=== PATIENT | male | born 1955 | race Caucasian/White ===

== ENCOUNTER → 2019-02-14 | Day surgery (SDC) | payer OTHER ==
[2019-02-11 11:15] LABS: BASOPHILS # (AUTO) 0.1 (0.0-0.1); BASOPHILS % 1.3 % (0.0-1.0); EOSINOPHILS # (AUTO) 0.5 (0.0-0.4); EOSINOPHILS % 7.9 % (0.0-6.0); HEMATOCRIT 43.9 % (38.2-49.6); HEMOGLOBIN 14.6 g/dL (14.0-18.0); LYMPHOCYTES # (AUTO) 2.3 (1.0-3.2); LYMPHOCYTES % 37.1 % (18.0-39.1); MEAN CORPUSCULAR HEMOGLOBIN 29.4 pg (28-32); MEAN CORPUSCULAR HGB CONC 33.3 g/dL (31-35); MEAN CORPUSCULAR VOLUME 88.3 fL (81-99); MONOCYTES # (AUTO) 0.5 (0.2-0.8); MONOCYTES % 7.9 % (4.4-11.3); NEUTROPHILS # (AUTO) 2.9 (2.1-6.9); NEUTROPHILS % 45.6 % (38.7-80.0); PLATELET COUNT 240 x10e3/uL (140-360); RED BLOOD COUNT 4.97 x10e6/uL (4.3-5.7); RED CELL DISTRIBUTION WIDTH 13.4 % (11.7-14.4)
[2019-02-11 11:31] LABS: ALANINE AMINOTRANSFERASE 65 IU/L (0-55); ALBUMIN 4.1 g/dL (3.5-5.0); ALBUMIN/GLOBULIN RATIO 1.2 (0.8-2.0); ALKALINE PHOSPHATASE 74 IU/L (40-150); BLOOD UREA NITROGEN 15 mg/dL (7-26); BUN/CREATININE RATIO 17 (6-25); CALCIUM 10.5 mg/dL (8.4-10.2); CARBON DIOXIDE 24 mmol/L (22-29); CHLORIDE 103 mmol/L (98-107); CREATININE, SERUM 0.88 mg/dL (0.72-1.25); EST GLOMERULAR FILTRATION RATE > 60 ML/MIN (60-); GLUCOSE 95 mg/dL (74-118); SODIUM 136 mmol/L (136-145)
[2019-02-11 11:32] LABS: INR 0.96; PROTHROMBIN TIME 13.3 seconds (11.9-14.5)
[2019-02-11 11:33] LABS: PARTIAL THROMBOPLASTIN TIME 33.4 seconds (23.8-35.5)
[~2019-02-14] MED LIST: ADULT ASPIRIN81 MG PO; CEFAZOLIN SOD 1 GM/NS 50ML 50 ML IV ONE; CITALOPRAM HBR20 MG PO; DEXAMETHASONE SOD PHOS INJ 4 MG/ML VIAL ONE; FENTANYL CITRATE/PF 100MCG/2 ML INJ ONE; GLIPIZIDE ER5 MG PO; INSULIN N SQ; KETOROLAC TROMETHAMINE 30 MG/ML VIAL ONE; LEVOTHYROXINE200 MCG; LEVOTHYROXINE25 MCG PO; LIDOCAINE HCL 2% LOCAL INJ 5 ML SDV VIAL INJ ONE; LISINOPRIL-HCT1 EAC2 PO; LOVASTATIN20 MG PO; MIDAZOLAM HCL 2 MG/2 ML VIAL ONE; MULTI-VITAMIN1 EACH PO; ONDANSETRON HCL INJ 2MG/ML 2ML 2 MG/ML VIAL ONE; PIOGLITAZONE HC45 MG PO; PROPOFOL IV EMULSION 10 MG/ML 20 ML VIAL ONE; SEVOFLURANE INHAL SOLN 250 ML PEN BTL ONE; TESTOSTERONE SHOT; VIT D PO; Z LEVOTHROID PO; Z.0.ACTOS15 MG PO; Z.0.GLUCOPHAGE500 MG PO; Z.0.LOVAZA1 GM PO; Z.2.LISINOPRIL-HCT1 PO; ZETIA10 MG PO; [UNRECOGNIZED DRUG - OTHER] PO
--- OUTSIDE RECORDS SUMMARY | 2019-02-14 05:21 | XMS REPORT ---
Author Author [facility] Address Unknown Phone Unavailable Care Team Providers Care Architect Marine Name Role Phone ROVERTO GILBERT Unavailable Unavailable RICHMOND OCONNOR Unavailable Unavailable Radha HILTON Unavailable Unavailable Problems This patient has no known problems. Allergies, Adverse Reactions, Alerts This patient has no known allergies or adverse reactions. Medications This patient has no known medications. Results Test Description Test Time Test Comments Text Results Atomic Results Result Comments TISSUE EXAM 2018-04-23 13:50:00 Surgical Pathology Report Case: [id number] Authorizing Provider: Gilbert Garcia Collected: 04/17/2018 1533 Ord ering Location: [facility] Radiology Angio Received: 04/17/2018 1533 Pathologist: Ana Lilia Ridley MD Specimen: Biopsy, Liver LIVER, ULTRASOUND-GUIDED NEEDLE BIOPSIES- STEATOHEPATITIS- FIBROSIS STAGE 3 OF 4- SEE COMMENT Signing Pathologist Direct Phone Line: [phone] signed by Ana Lilia Ridley MD on 04/23/2018 at 1:50 PMThe non-alcoholic steatohepatitis (JARET) activity scoring is performed according to guidelines from non-alcoholic steatohepatitis, clinical research network (Tana, et al. Hepatology 2005. 41:1313-21), at the request of the clinician, for research related purposes.The JARET score is: Steatosis: Grade 3 + lobular inflammation, grade 1 + hepatocyte ballooning score 2=6/8. The fibrosis score is 3 of 4.36514, 40037 [id number] liver enzymes Right match-e-be-n[place]-she-wish band liver biopsyThe specimen is received in a formalin- filled container and labeled with the patient's information and labeled "right match-e-be-n[place]-she-w[place] band liver biopsy" and consists of two car core biopsies measuring 2.5 and 2.7 cm in length. Both cores are bisected, submitted entirely A1. CG/pl Section shows four variably sized cores of liver parenchyma with greater than 10 portal tracts and is adequate for evaluation. There is diffuse steatosis, mixed large droplet, medium droplet and small droplet typemacrovesicular type, involving about 70% of liver parenchyma. Multifocal ballooning degeneration with Karen Denk hyaline is noted. There is mild lobular inflammation with few scattered acidophilic bodies. Occasional glycogenated nuclei are seen. The portal tracts show preserved and unremarkable bile ducts. No significant portal inflammation is noted. There is cholangiolar proliferation with associated neutrophils. Iron stain is negative. No hyaline globules are seen on PAS with diastase stain. The trichrome stain shows portal/periportal and perisinusoidal fibrosis. Multiple foci of central to portal bridging fibrosis are seen.Special stains: trichrome, reticulin, iron and PAS with diastase U/S, BIOPSY, LIVER 2018-04-17 11:01:00 Reason for Exam:->ELEVATED LFTS, K76.0 FINAL REPORT Procedure: Ultrasound-Guided Core Random Hepatic Biopsy: Pre/post-procedure diagnosis: Elevated LFTs Physician: Helena Assistants: none Sedation: versed 2 mg, fentanyl 100 mcg IV. The patient vital signs and pulse oximetry were monitored by the attending physician and a registered nurse during and after the procedure and remained stable. Local Anesthesia: 5 cc 1% Xylocaine Approach: Right anterolateral intercostal Description/findings: The risks, benefits, and alternatives of the procedure were discussed with the patient. Questions were answered, and the patient agrees with the treatment plan. Informed, written consent was then obtained. After an appropriate site for biopsy was found, the skin of the right upper abdomen was prepped and draped, and local anesthesia given. A 16 G Bio-Pince core biopsy needle was inserted into the right lobe under ultrasound guidance. A total of 2 passes were made. Post procedure sonogram reveals no hematoma. No immediate complications were noted. The moderate sedation time was 19 minutes. Specimen: Total of 2 16 G core biopsy samples; samples were delivered to pathology in formalin solution. Estimated blood loss: none. Disposition: Six hour observation. Impression: Uncomplicated ultrasound-guided core random hepatic biopsy. Signed: Karthikeyan Alvarado Verified Date/Time: 04/17/2018 11:01:00 Reading Location: [address] Ultrasound Reading Room C METABOLIC PANEL 2018-04-17 06:57:00 SODIUM (BEAKER) (test apuj=068) 139 meq/L 136-145 POTASSIUM (BEAKER) (test cmee=909) 4.2 meq/L 3.5-5.1 CHLORIDE (BEAKER) (test tflw=864) 104 meq/L 98-107 CO2 (BEAKER) (test dvcq=318) 26 meq/L 22-29 BLOOD UREA NITROGEN (BEAKER) (test igqc=113) 13 mg/dL 7-21 CREATININE (BEAKER) (test joih=541) 0.88 mg/dL 0.57-1.25 GLUCOSE RANDOM (BEAKER) (test xrml=649) 213 mg/dL 70-105 CALCIUM (BEAKER) (test ohpn=841) 10.2 mg/dL 8.4-10.2 EGFR (BEAKER) (test pboh=7454) 88 mL/min/1.73 sq m ESTIMATED GFR IS NOT ACCURATE CREATININE CLEARANCE IN PREDICTING GLOMERULAR FILTRATION RATE. ESTIMATED GFR IS NOT APPLICABLE FOR DIALYSIS PATIENTS. PT/[id number] 06:50:00* Test Item Value Reference Range Comments PROTIME (BEAKER) (test wnan=885) 14.1 seconds 11.7-14.7 INR (BEAKER) (test slfy=524) 1.1 <=5.9 PARTIAL THROMBOPLASTIN TIME (BEAKER) (test optz=302) 29.7 seconds 22.5-36.0 RECOMMENDED COUMADIN/WARFARIN INR THERAPY RANGESSTANDARD DOSE: 2.0 - 3.0 Inclu haydee: PROPHYLAXIS for venous thrombosis, systemic embolization; TREATMENT for lisa ous thrombosis and/or pulmonary embolus.HIGH RISK: Target INR is 2.5-3.5 for pat ients with mechanical heart valves.CBC W/PLT COUNT & AUTO [id number] 06:42:00* Test Item Value Reference Range Comments WHITE BLOOD CELL COUNT (BEAKER) (test pvzk=894) 5.0 K/ L 3.5-10.5 RED BLOOD CELL COUNT (BEAKER) (test tvph=900) 4.28 M/ L 4.63-6.08 HEMOGLOBIN (BEAKER) (test vlap=475) 12.8 GM/DL 13.7-17.5 HEMATOCRIT (BEAKER) (test lbti=889) 39.3 % 40.1-51.0 MEAN CORPUSCULAR VOLUME (BEAKER) (test uycg=564) 91.8 fL 79.0-92.2 MEAN CORPUSCULAR HEMOGLOBIN (BEAKER) (test wtaq=842) 29.9 pg 25.7-32.2 MEAN CORPUSCULAR HEMOGLOBIN CONC (BEAKER) (test mekh=144) 32.6 GM/DL 32.3-36.5 RED CELL DISTRIBUTION WIDTH (BEAKER) (test vfph=237) 13.8 % 11.6-14.4 PLATELET COUNT (BEAKER) (test lhtd=778) 178 K/CU MM 150-450 MEAN PLATELET VOLUME (BEAKER) (test tzgt=447) 11.9 fL 9.4-12.4 NUCLEATED RED BLOOD CELLS (BEAKER) (test ttdu=183) 0 /100 WBC 0-0 NEUTROPHILS RELATIVE PERCENT (BEAKER) (test myro=819) 56 % LYMPHOCYTES RELATIVE PERCENT (BEAKER) (test prfq=474) 30 % MONOCYTES RELATIVE PERCENT (BEAKER) (test wdhz=287) 10 % EOSINOPHILS RELATIVE PERCENT (BEAKER) (test ondg=315) 3 % BASOPHILS RELATIVE PERCENT (BEAKER) (test abmm=038) 1 % NEUTROPHILS ABSOLUTE COUNT (BEAKER) (test asye=288) 2.80 K/ L 1.78-5.38 LYMPHOCYTES ABSOLUTE COUNT (BEAKER) (test hywd=204) 1.49 K/ L 1.32-3.57 MONOCYTES ABSOLUTE COUNT (BEAKER) (test fcoq=153) 0.49 K/ L 0.30-0.82 EOSINOPHILS ABSOLUTE COUNT (BEAKER) (test rppu=494) 0.16 K/ L 0.04-0.54 BASOPHILS ABSOLUTE COUNT (BEAKER) (test encs=489) 0.06 K/ L 0.01-0.08 IMMATURE GRANULOCYTES-RELATIVE PERCENT (BEAKER) (test uakk=5313) 0 % 0-1 POCT-GLUCOSE [id number] 12:27:00* Test Item Value Reference Range Comments POC-GLUCOSE METER (BEAKER) (test opuf=2163) 116 mg/dL 70-110 TESTED AT [facility] [address] [address] POCT-GLUCOSE [id number] 08:21:00* Test Item Value Reference Range Comments POC-GLUCOSE METER (BEAKER) (test rgwt=5563) 123 mg/dL 70-110 TESTED AT [address] [address] POCT-GLUCOSE [id number] 21:17:00* Test Item Value Reference Range Comments POC-GLUCOSE METER (BEAKER) (test zypk=5007) 69 mg/dL 70-110 TESTED AT [address] [address] POCT-GLUCOSE [id number] 17:10:00* Test Item Value Reference Range Comments POC-GLUCOSE METER (BEAKER) (test dawn=2140) 107 mg/dL 70-110 TESTED AT [address] [address] POCT-GLUCOSE [id number] 11:50:00* Test Item Value Reference Range Comments POC-GLUCOSE METER (BEAKER) (test xkue=1828) 121 mg/dL 70-110 TESTED AT [address] [address] POCT-GLUCOSE [id number] 09:58:00* Test Item Value Reference Range Comments POC-GLUCOSE METER (BEAKER) (test emsh=8926) 136 mg/dL 70-110 TESTED AT [address] [address] POCT-GLUCOSE [id number] 22:19:00* Test Item Value Reference Range Comments POC-GLUCOSE METER (BEAKER) (test hvuj=5364) 88 mg/dL 70-110 TESTED AT [address] [address] POCT-GLUCOSE [id number] 17:28:00* Test Item Value Reference Range Comments POC-GLUCOSE METER (BEAKER) (test njyu=9813) 149 mg/dL 70-110 TESTED AT [address] [address] POCT-GLUCOSE [id number] 11:47:00* Test Item Value Reference Range Comments POC-GLUCOSE METER (BEAKER) (test eyhs=3368) 107 mg/dL 70-110 TESTED AT [address] [address] POCT-GLUCOSE [id number] 07:31:00* Test Item Value Reference Range Comments POC-GLUCOSE METER (BEAKER) (test umzb=3396) 108 mg/dL 70-110 TESTED AT [address] [address] POCT-GLUCOSE [id number] 22:14:00* Test Item Value Reference Range Comments POC-GLUCOSE METER (BEAKER) (test fccn=1044) 85 mg/dL 70-110 TESTED AT [address] [address] POCT-GLUCOSE [id number] 16:45:00* Test Item Value Reference Range Comments POC-GLUCOSE METER (BEAKER) (test sfpv=6501) 122 mg/dL 70-110 TESTED AT [address] [address] POCT-GLUCOSE [id number] 07:49:00* Test Item Value Reference Range Comments POC-GLUCOSE METER (BEAKER) (test vwpt=1658) 130 mg/dL 70-110 TESTED AT [address] [address] POCT-GLUCOSE [id number] 21:17:00* Test Item Value Reference Range Comments POC-GLUCOSE METER (BEAKER) (test qckg=3184) 134 mg/dL 70-110 TESTED AT [address] [address] POCT-GLUCOSE [id number] 16:12:00* Test Item Value Reference Range Comments POC-GLUCOSE METER (BEAKER) (test ocam=7760) 129 mg/dL 70-110 TESTED AT [address] [address] POCT-GLUCOSE [id number] 11:32:00* Test Item Value Reference Range Comments POC-GLUCOSE METER (BEAKER) (test wkoo=9613) 115 mg/dL 70-110 TESTED AT [address] [address] POCT-GLUCOSE [id number] 08:00:00* Test Item Value Reference Range Comments POC-GLUCOSE METER (BEAKER) (test yedg=3416) 145 mg/dL 70-110 TESTED AT [address] [address] POCT-GLUCOSE [id number] 21:29:00* Test Item Value Reference Range Comments POC-GLUCOSE METER (BEAKER) (test dzox=2255) 102 mg/dL 70-110 TESTED AT [address] [address] POCT-GLUCOSE [id number] 16:35:00* Test Item Value Reference Range Comments POC-GLUCOSE METER (BEAKER) (test bnco=6456) 172 mg/dL 70-110 TESTED AT [place] [id number] POCT-GLUCOSE [id number] 13:18:00* Test Item Value Reference Range Comments POC-GLUCOSE METER (BEAKER) (test cvum=1599) 170 mg/dL 70-110 TESTED AT [place] [address] POCT-GLUCOSE [id number] 19:26:00* Test Item Value Reference Range Comments POC-GLUCOSE METER (BEAKER) (test xosn=3993) 127 mg/dL 70-110 TESTED AT [address] [address] BASIC METABOLIC [id number] 15:48:00* Test Item Value Reference Range Comments SODIUM (BEAKER) (test kplq=986) 139 meq/L 136-145 POTASSIUM (BEAKER) (test zhqb=065) 3.6 meq/L 3.5-5.1 CHLORIDE (BEAKER) (test srsj=775) 110 meq/L 98-107 CO2 (BEAKER) (test xtpq=415) 20 meq/L 22-29 BLOOD UREA NITROGEN (BEAKER) (test zkow=820) 19 mg/dL 7-21 CREATININE (BEAKER) (test cqls=981) 0.78 mg/dL 0.57-1.25 GLUCOSE RANDOM (BEAKER) (test ckoj=778) 134 mg/dL 70-105 CALCIUM (BEAKER) (test meaf=985) 7.8 mg/dL 8.4-10.2 EGFR (BEAKER) (test qcvi=6845) 102 mL/min/1.73 sq m ESTIMATED GFR IS NOT ACCURATE CREATININE CLEARANCE IN PREDICTING GLOMERULAR FILTRATION RATE. ESTIMATED GFR IS NOT APPLICABLE FOR DIALYSIS PATIENTS. POCT-GLUCOSE [id number] 15:23:00* Test Item Value Reference Range Comments POC-GLUCOSE METER (BEAKER) (test csyb=2655) 159 mg/dL 70-110 TESTED AT [address] [address] CBC W/PLT COUNT & AUTO [id number] 15:19:00* Test Item Value Reference Range Comments WHITE BLOOD CELL COUNT (BEAKER) (test skge=537) 9.3 K/ L 3.5-10.5 RED BLOOD CELL COUNT (BEAKER) (test mfgv=757) 4.51 M/ L 4.63-6.08 HEMOGLOBIN (BEAKER) (test dkfj=716) 13.5 GM/DL 13.7-17.5 HEMATOCRIT (BEAKER) (test eoiz=557) 40.8 % 40.1-51.0 MEAN CORPUSCULAR VOLUME (BEAKER) (test rzyr=500) 90.5 fL 79.0-92.2 MEAN CORPUSCULAR HEMOGLOBIN (BEAKER) (test hwvf=427) 29.9 pg 25.7-32.2 MEAN CORPUSCULAR HEMOGLOBIN CONC (BEAKER) (test ywrw=709) 33.1 GM/DL 32.3-36.5 RED CELL DISTRIBUTION WIDTH (BEAKER) (test klfq=261) 15.6 % 11.6-14.4 PLATELET COUNT (BEAKER) (test hcqu=307) 225 K/CU MM 150-450 MEAN PLATELET VOLUME (BEAKER) (test iajv=046) 11.0 fL 9.4-12.4 NUCLEATED RED BLOOD CELLS (BEAKER) (test tzen=775) 0 /100 WBC 0-0 NEUTROPHILS RELATIVE PERCENT (BEAKER) (test mdxq=265) 72 % LYMPHOCYTES RELATIVE PERCENT (BEAKER) (test qxqd=987) 17 % MONOCYTES RELATIVE PERCENT (BEAKER) (test woyb=849) 8 % EOSINOPHILS RELATIVE PERCENT (BEAKER) (test grmd=378) 2 % BASOPHILS RELATIVE PERCENT (BEAKER) (test hlwx=023) 1 % NEUTROPHILS ABSOLUTE COUNT (BEAKER) (test cqtg=671) 6.71 K/ L 1.78-5.38 LYMPHOCYTES ABSOLUTE COUNT (BEAKER) (test dlbz=593) 1.58 K/ L 1.32-3.57 MONOCYTES ABSOLUTE COUNT (BEAKER) (test ymtc=397) 0.75 K/ L 0.30-0.82 EOSINOPHILS ABSOLUTE COUNT (BEAKER) (test zvky=058) 0.16 K/ L 0.04-0.54 BASOPHILS ABSOLUTE COUNT (BEAKER) (test ybes=626) 0.06 K/ L 0.01-0.08 IMMATURE GRANULOCYTES-RELATIVE PERCENT (BEAKER) (test keos=3008) 0 % 0-1 LOWER LEG RIGHT [facility] [address] [address] Patient Name: AUTUNM OLSON MR #: [id number] : 1955 Age/Sex: 61/M Req #: [id number] Adm Physician: Ordered by: TAVON HILTON MD Report #: [id number] Location: ER Room/Bed: Procedure: [id number] DX/LOWER LEG RIGHT Exam Date : 02/27/17 Exam Time: 2038 REPORT STATUS: Margo d EXAM: AP and crosstable lateral right femur and tib-fib x-rays DATE: 2016 Time stamp on exam: 2038 hours INDICATION: Fall, ankle pain COMP ARISON: None A preliminary report was provided by Dr. Dumont February 27 at 2132 hours. FINDINGS: BONES: Nonvisualization of the right hip s econdary to body habitus Acute mildly displaced diagonal fracture through the distal fibula with extension above the plafond. Acute displaced medial malle olus fracture. JOINTS: Widening of the medial clear space consistent with ligamentous injury. SOFT TISSUES: Soft tissue spine of the ankle. I MPRESSION: Acute right ankle bimalleolar fracture. No femoral fracture. Signed by: Dr. Valerie Dumont M.D. on 03/15/2017 2:59 AM Dictat ed By: VALERIE DUMONT MD 8 Transcribed By: JE on 03/15/17258 COPY TO: TAVON HILTON MD FEMUR TWO VIEW MINIMUM RIGHT [place] [address] Patient Name: AUTUMN OLSON MR #: [id number] : 1955 Age/Sex: 61/M Req #: [id number] Adm Physician: Ordered by: TAVON HILTON MD Report #: [id number] Location: Room/Bed: Procedure: [id number] DX/FEMUR TWO VIEW MINIMUM RIG HT Exam Date: Exam Time: REPORT STATUS: Sign ed EXAM: AP and crosstable lateral right femur and tib-fib x-rays DATE: Jan Time stamp on exam: 9 hours INDICATION: Fall, ankle pain COM PARISON: None A preliminary report was provided by Dr. Dumont February 27 017 at 2132 hours. FINDINGS: BONES: Nonvisualization of the right hip secondary to body habitus Acute mildly displaced diagonal fracture through the distal fibula with extension above the plafond. Acute displaced medial mall eolus fracture. JOINTS: Widening of the medial clear space consistent wit h ligamentous injury. SOFT TISSUES: Soft tissue spine of the ankle. IMPRESSION: Acute right ankle bimalleolar fracture. No femoral fracture. Signed by: Dr. Valerie Dumont M.D. on 03/15/2017 2:59 AM Dicta nury By: VALERIE DUMONT MD 8 Transcribed By: JE on 03/15/17258 COPY TO: TAVON HILTON MD
--- OUTSIDE RECORDS SUMMARY | 2019-02-14 05:21 | XMS REPORT | Clinical Summary ---
Author Author [facility] Address Unknown Phone Unavailable Care Team Providers Care [employer] Name Role Phone Pcp, No PCP Unavailable Allergies No Known Allergies Medications End Date Status Medication Sig Dispensed Refills Start Date Active hydroCHLOROthiazide Take 25 mg by 0 (HYDRODIURIL) 25 MG mouth daily. tablet Active glipiZIDE (GLUCOTROL) 5 Take 10 mg by 0 MG tablet mouth daily Extended release. Active levothyroxine (SYNTHROID, Take 200 mcg 0 LEVOTHROID) 200 MCG by mouth tablet Every morning on an empty stomach. Active pioglitazone (ACTOS) 45 Take 45 mg by 0 MG tablet mouth daily. Active cholecalciferol, vitamin Take 10,000 0 D3, 2,000 unit Tab Units by mouth daily. Active multivitamin per tablet Take 1 tablet 0 by mouth daily. Active aspirin 81 MG EC tablet Take 81 mg by 0 mouth daily. Active lisinopril Take 20 mg by 0 (PRINIVIL,ZESTRIL) 20 MG mouth daily. tablet Active simvastatin (ZOCOR) 10 MG Take 10 mg by 0 tablet mouth nightly. Active testosterone cypionate Inject 200 mg 0 (DEPOTESTOTERONE intramuscular CYPIONATE) 200 mg/mL ly every 14 injection (fourteen) days Pt does it every 12 days . Active metFORMIN (GLUCOPHAGE-XR) Take 1,000 mg 0 500 MG 24 hr tablet by mouth 2 (two) times daily. Active citalopram (CELEXA) 20 MG Take 20 mg by 0 tabletIndications: mouth daily. Anxiety with Depression Active enoxaparin (LOVENOX) 60 Inject 0.6 10 Syringe 0 mg/0.6 mL Syrg mLs (60 mg 7 total) subcutaneousl y daily. Active HYDROcodone-acetaminophen Take 1-2 80 tablet 0 (NORCO 10-325) 10-325 mg tablets by 7 per tablet mouth every 4 (four) hours as needed for Pain. Max Daily Amount: 12 tablets Active dulaglutide (TRULICITY) Inject 1.5 mg 0 1.5 mg/0.5 mL PnIj subcutaneousl y every 7 days. Active Problems Problem Noted Date Trimalleolar fracture of ankle, closed, right, initial encounter 03/02/2017 Encounters Care Team Description Date Type Specialty Radha, Gilbert Elevated liver function tests; Fatty liver 04/17/2018 Hospital Encounter Radha, Gilbert Elevated liver function tests (Primary Dx); Fatty liver 04/11/2018 Outside Orders Central Scheduling after 02/13/2018 Family History Medical History Relation Name Comments Heart disease Father Hyperlipidemia Father Vision loss Father Cancer Maternal Uncle Arthritis Mother Hyperlipidemia Mother Depression Sister Hyperlipidemia Sister Relation Name Status Comments Father Maternal Uncle Mother Sister Social History Date Tobacco Use Types Packs/Day Years Used Quit: 2011 Former Smoker Smokeless Tobacco: Never Used Comments: quit 15 years ago Sex Assigned at Date Recorded Not on file Industry Job Start Date Occupation Not on file Not on file Not on file Travel End Travel History Travel Start No recent travel history available. Last Filed Vital Signs Time Taken Vital Sign Reading 04/17/2018 3:00 PM CDT Blood Pressure 131/79 04/17/2018 3:00 PM CDT Pulse 91 04/17/2018 9:20 AM CDT Temperature 36.4 C (97.5 F) 04/17/2018 3:00 PM CDT Respiratory Rate 18 04/17/2018 9:45 AM CDT Oxygen Saturation 93% - Inhaled Oxygen - Concentration 04/17/2018 5:51 AM CDT Weight 170.4 kg (375 lb 11.2 oz) 04/17/2018 5:51 AM CDT Height 180.3 cm (5' 11") 04/17/2018 5:51 AM CDT Body Mass Index 52.4 Plan of Treatment Not on file Implants Device Identifier Shelf Expiration Date Model / Serial / Lot Implanted Type Area Manufactur er [id number] / / Scr Lp Jj Ln Thrd 4x40mm Fracture/F Right: Ankle ARTHREX [id number] - [id number] ixation Implanted: Qty: 2 on 03/03/2017 by Reba Bryan MD [id number] / / [id number] Plt Lock Dis Fib Right Ss 6h Fracture/F Right: Ankle ARTHREX [id number] - [id number] ixation Implanted: Qty: 1 on 03/03/2017 by Reba Bryan MD [id number] / / Scr Non Najma Clinton Lp 3.5x22mm Fracture/F Right: Ankle ARTHREX [id number] - [id number] ixation Implanted: Qty: 1 on 03/03/2017 by Reba Bryan MD [id number] / / Scr Non Najma Clinton Lp 3.5x16mm Fracture/F Right: Ankle ARTHREX [id number] - [id number] ixation Implanted: Qty: 11 on 03/03/2017 by Reba Bryan MD [id number] / / Scr Najma Low Profile 16mm Ss - Fracture/F Right: Ankle ARTHREX [id number] ixation Implanted: Qty: 1 on 03/03/2017 by Reba Bryan MD [id number] / / Scr Najma Low Profile 18mm Ss - Fracture/F Right: Ankle ARTHREX [id number] ixation Implanted: Qty: 11 on 03/03/2017 by Reba Bryan MD Procedures Comments Procedure Name Priority Date/Time Associated Diagnosis TISSUE EXAM AP Routine 04/17/2018 3:33 PM CDT US LIVER BIOPSY Routine 04/17/2018 Elevated liver function 9:25 AM CDT tests Fatty liver CBC W/PLT COUNT & AUTO STAT 04/17/2018 DIFFERENTIAL 6:31 AM CDT PT/APTT STAT 04/17/2018 6:31 AM CDT BASIC METABOLIC PANEL (7) STAT 04/17/2018 6:31 AM CDT CBC W/PLT COUNT & AUTO STAT 04/17/2018 DIFFERENTIAL 6:31 AM CDT after 02/13/2018 Results * Tissue Exam (04/17/2018 3:33 PM CDT) Case Report Surgical Pathology [facility] Report [facility] Case: [id number] Authorizing Provider:Gilbert Garcia Collected: 04/17/2018 1533 Ordering Location: [facility] Radiology AngioReceived: 04/17/2018 1533 Pathologist: Ana Lilia Ridley MD Specimen:Biopsy, Liver DIAGNOSIS LIVER, ULTRASOUND-GUIDED [facility] NEEDLE BIOPSIES [facility] - STEATOHEPATITIS - FIBROSIS STAGE 3 OF 4 - SEE COMMENT Signing Pathologist Direct Phone Line: [phone] COMMENT The non-alcoholic [facility] steatohepatitis (JARET) activity [facility] scoring is performed according to guidelines from non-alcoholic steatohepatitis, clinical research network (Tana, et al. Hepatology 2005. 41:1313-21), at the request of the clinician, for research related purposes. The JARET score is: Steatosis: Grade 3 + lobular inflammation, grade 1 + hepatocyte ballooning score 2=6/8. The fibrosis score is 3 of 4. CPT Code(s) 88538, 90136 X4 [facility] CLINICAL HISTORY Elevated liver enzymes [facility] SPECIMEN SOURCE Right [place] liver biopsy [facility] GROSS DESCRIPTION The specimen is received in a [facility] formalin-filled container and [facility] labeled with the patient's information and labeled "right [place] liver biopsy" and consists of two car core biopsies measuring 2.5 and 2.7 cm in length. Both cores are bisected, submitted entirely A1. CG/pl MICROSCOPIC DESCRIPTION Section shows four variably [facility] sized cores of liver [facility] parenchyma with greater than 10 portal tracts [...] of central to portal bridging fibrosis are seen. Special stains: trichrome, reticulin, iron and PAS with diastase Specimen Tissue - Biopsy, Liver Performing Organization Address City/State/Zipcode Phone Number [facility] [address] [place] [address] [facility] * Liver Biopsy (04/17/2018 9:25 AM CDT) Specimen Narrative Performed At FINAL REPORT [facility] Procedure: Ultrasound-Guided Core Random Hepatic Biopsy: Pre/post-procedure [...] core random hepatic biopsy. Signed: Karthikeyan Alvarado MD Report Verified Date/Time:04/17/2018 11:01:00 Reading Location: [facility] [id number] Ultrasound Reading Room Procedure Note Interface, External Ris In - 04/17/2018 11:03 AM CDT FINAL REPORT Procedure: Ultrasound-Guided Core Random Hepatic [...] core random hepatic biopsy. Signed: Karthikeyan Alvarado MD Report Verified Date/Time: 04/17/2018 11:01:00 Reading Location: [address] Ultrasound Reading Room Performing Organization Address City/State/Zipcode Phone Number [facility] * PT/aPTT (04/17/2018 6:31 AM CDT) Protime 14.1 11.7 - 14.7 seconds [facility] INR 1.1 <=5.9 [facility] PTT 29.7 22.5 - 36.0 seconds [facility] Specimen Blood Narrative Performed At RECOMMENDED COUMADIN/WARFARIN INR THERAPY RANGES [facility] STANDARD DOSE: 2.0 - 3.0 Includes: PROPHYLAXIS for venous thrombosis, [facility] systemic embolization; TREATMENT for venous thrombosis and/or pulmonary embolus. HIGH RISK: Target INR is 2.5-3.5 for patients with mechanical heart valves. Performing Organization Address City/State/Zipcode Phone Number [facility] [address] [place] [address] [facility] * CBC with platelet count + automated diff (04/17/2018 6:31 AM CDT) WBC 5.0 3.5 - 10.5 K/L [facility] RBC 4.28 (L) 4.63 - 6.08 M/L [facility] Hemoglobin 12.8 (L) 13.7 - 17.5 GM/DL [facility] Hematocrit 39.3 (L) 40.1 - 51.0 % [facility] MCV 91.8 79.0 - 92.2 fL [facility] MCH 29.9 25.7 - 32.2 pg [facility] MCHC 32.6 32.3 - 36.5 GM/DL [facility] RDW 13.8 11.6 - 14.4 % [facility] Platelets 178 150 - 450 K/CU MM [facility] MPV 11.9 9.4 - 12.4 fL [facility] nRBC 0 0 - 0 /100 WBC [facility] % Neutros 56 % [facility] % Lymphs 30 % [facility] % Monos 10 % [facility] % Eos 3 % [facility] % Baso 1 % [facility] # Neutros 2.80 1.78 - 5.38 K/L [facility] # Lymphs 1.49 1.32 - 3.57 K/L [facility] # Monos 0.49 0.30 - 0.82 K/L [facility] # Eos 0.16 0.04 - 0.54 K/L [facility] # Baso 0.06 0.01 - 0.08 K/L [facility] Immature 0 0 - 1 % [facility] Granulocytes-[facility] Specimen Blood Performing Organization Address City/State/Zipcode Phone Number [facility] [address] [place] [address] [facility] * Basic Metabolic Panel (04/17/2018 6:31 AM CDT) Sodium 139 136 - 145 meq/L [facility] Potassium 4.2 3.5 - 5.1 meq/L [facility] Chloride 104 98 - 107 meq/L [facility] CO2 26 22 - 29 meq/L [facility] BUN 13 7 - 21 mg/dL [facility] Creatinine 0.88 0.57 - 1.25 mg/dL [facility] Glucose 213 (H) 70 - 105 mg/dL [facility] Calcium 10.2 8.4 - 10.2 mg/dL [facility] EGFR 88Comment: ESTIMATED GFR IS mL/min/1.73 sq m [facility] NOT ACCURATE CREATININE [facility] CLEARANCE IN PREDICTING GLOMERULAR FILTRATION RATE. ESTIMATED GFR IS NOT APPLICABLE FOR DIALYSIS PATIENTS. Specimen Blood Performing Organization Address City/State/Zipcode Phone Number [facility] [address] [place], [place] [id number] [facility] after 02/13/2018 Insurance Payer Benefit Subscriber ID Type Phone Address Plan / Group [facility] HMO/POS CARE POS SELECT CHOICE Advance Directives For more information, please contact: Jac[place]eline [place] [phone] [place], [place] [id number] Date Inactivated Comments Code Status Date Activated 04/17/2018 5:47 PM Full Code 04/17/2018 9:42 AM This code status was determined by: Patient 03/08/2017 2:56 PM Full Code 03/02/2017 2:22 PM This code status was determined by: Patient
[2019-02-14 08:15] VITALS: BP 111/63
--- NOTE | 2019-02-15 14:23 | Operative Report ---
DATE OF PROCEDURE: 02/14/2019 SURGEON: Fransisco Bertrand MD PREOPERATIVE DIAGNOSIS: Stenosing tenosynovitis of right thumb trigger finger. POSTOPERATIVE DIAGNOSIS: Stenosing tenosynovitis of right thumb trigger finger. OPERATION PERFORMED: Tenovaginotomy of right thumb trigger finger. ANESTHESIA: General. HISTORY: The patient is a 63-year-old male, who presents with stenosing tenosynovitis of the right thumb finger that is recalcitrant to conservative treatment. The risks, benefits, and alternatives of treatment were discussed with the patient and they are prepared to undergo the procedure as outlined. DESCRIPTION OF PROCEDURE: The patient was brought to the operating theater. After the induction of adequate general/regional anesthesia, the patient was prepped and draped in a supine position. A time out was performed by the entire operating room team. An oblique incision was marked out over the A1 isabel of the right thumb finger. The upper extremity was exsanguinated, and a tourniquet was inflated to a pressure of 250 mmHg. The incision was made through the skin and subcutaneous tissues. All venous tributaries were controlled with bipolar cautery. The incision was deepened through the palmar tissues. The neurovascular bundles on the radial and ulnar sides of the flexor tendon sheath were identified and retracted away from the flexor tendon sheath and preserved. The A1 isabel of the affected finger was identified and incised longitudinally, taking care to protect and preserve the flexor tendons within the sheath. After the complete length of the isabel had been transected, the tendons were placed in a range of motion. There was noted to be good motion without any locking. The wound was then copiously irrigated with bacteriostatic saline and closed with 5-0 nylon in an interrupted horizontal mattress fashion. A Marcaine field block was performed at the operative site. The tourniquet was deflated. All the fingers pinked up nicely. A sterile bulky conforming bandage was applied to the hand, and the patient was returned to the recovery room in satisfactory condition and was discharged with a postoperative instruction sheet as well as a followup appointment. Fransisco Bertrand MD ER/MODL /[id number]
== END | disposition home or self-care (01) ==
LOC: OR 05:00
PROVIDERS: ATTEND Plastic Surgery
DX: M65.311 Trigger thumb, right thumb (principal); I10 Essential (primary) hypertension; E11.9 Type 2 diabetes mellitus without complications; E03.9 Hypothyroidism, unspecified; R06.83 Snoring; Z88.8 Allergy status to other drugs, medicaments and biological substances; Z01.810 Encounter for preprocedural cardiovascular examination; Z01.812 Encounter for preprocedural laboratory examination; Z79.4 Long term (current) use of insulin; Z79.82 Long term (current) use of aspirin
CPT/HCPCS: 26055; 36415 ×2; 80053; 82948; 85025; 85610; 85730; 93005; J0690; J1100; J1885; J2001; J2250; J2405; J2704; J3010

== ENCOUNTER 2021-01-04 08:53 | Inpatient (IN) | payer BC, OTHER ==
[~2021-01-04] VITALS: Ht 180.3 cm; Wt 148.3 kg
[~2021-01-04 08:53] MED LIST changes: -CEFAZOLIN SOD 1 GM/NS 50ML 50 ML IV ONE; -DEXAMETHASONE SOD PHOS INJ 4 MG/ML VIAL ONE; -FENTANYL CITRATE/PF 100MCG/2 ML INJ ONE; -KETOROLAC TROMETHAMINE 30 MG/ML VIAL ONE; -LIDOCAINE HCL 2% LOCAL INJ 5 ML SDV VIAL INJ ONE; -MIDAZOLAM HCL 2 MG/2 ML VIAL ONE; -ONDANSETRON HCL INJ 2MG/ML 2ML 2 MG/ML VIAL ONE; -PROPOFOL IV EMULSION 10 MG/ML 20 ML VIAL ONE; -SEVOFLURANE INHAL SOLN 250 ML PEN BTL ONE
[2021-01-04 09:43] LABS: BASOPHILS # (AUTO) 0.1 (0.0-0.1); BASOPHILS % 0.7 % (0.0-1.0); EOSINOPHILS # (AUTO) 0.1 (0.0-0.4); EOSINOPHILS % 0.9 % (0.0-6.0); HEMOGLOBIN 14.5 g/dL (14.0-18.0); LYMPHOCYTES # (AUTO) 2.1 (1.0-3.2); LYMPHOCYTES % 17.2 % (18.0-39.1); MEAN CORPUSCULAR HEMOGLOBIN 29.2 pg (28-32); MEAN CORPUSCULAR VOLUME 88.7 fL (81-99); MONOCYTES # (AUTO) 1.1 (0.2-0.8); MONOCYTES % 9.1 % (4.4-11.3); NEUTROPHILS # (AUTO) 8.6 (2.1-6.9); NEUTROPHILS % 70.1 % (38.7-80.0); PLATELET COUNT 304 x10e3/uL (140-360); RED BLOOD COUNT 4.96 x10e6/uL (4.3-5.7); RED CELL DISTRIBUTION WIDTH 13.5 % (11.7-14.4)
[2021-01-04] MEDS: Vancomycin IV 1 GM in SODIUM CHLORIDE 0.9% 250ML 250 ML IV SCH ×2 (10:00→17:00)
[2021-01-04 10:08] LABS: INR 0.98; PROTHROMBIN TIME 13.6 seconds (11.9-14.5)
[2021-01-04 10:22] LABS: ALBUMIN 3.5 g/dL (3.5-5.0); ALBUMIN/GLOBULIN RATIO 0.8 (0.8-2.0); ANION GAP 20.4 mmol/L (8-16); CALCIUM 10.1 mg/dL (8.4-10.2); CREATININE, SERUM 1.29 mg/dL (0.72-1.25); POTASSIUM 4.4 mmol/L (3.5-5.1)
[2021-01-04] MEDS: MORPHINE SULFATE INJ 4 MG/ML INJ 1ML IV PRN ×2 (10:23→14:37)
[2021-01-04] MEDS: CEFEPIME 1 GM in SODIUM CHLORIDE 0.9% 50ML 50 ML IV SCH (10:23)
[2021-01-04] MEDS ORDERED: ONDANSETRON HCL INJ 2MG/ML 2ML 2 MG/ML VIAL IV PRN (10:45)
[2021-01-04 12:05] VITALS: BP 128/69
[2021-01-04 13:21] VITALS: BP 128/69
[2021-01-04] MEDS ORDERED: LEVOTHYROXINE200 MC2 PO (13:49)
[2021-01-04] MEDS ORDERED: LEVOFLOXAC250 MG/10 PO (13:52)
[2021-01-04] MEDS ORDERED: ACETAMINOPHEN 325 MG TAB PO PRN (19:00)
[2021-01-04] MEDS ORDERED: MORPHINE SULFATE INJ 2 MG/ML SYR IV PRN (19:00)
[2021-01-04] MEDS: HYDROCODONE/APAP 5MG-325MG TAB PO PRN (19:42)
[2021-01-04 20:00] VITALS: BP 125/58
[2021-01-04 20:41] VITALS: BP_SYST 106; BP_SYST 125; BP_DIAS 57; BP_DIAS 58
[2021-01-04] MEDS: SODIUM CHLORIDE 0.9% 1000ML 1,000 ML IV SCH (21:18)
[2021-01-04] MEDS ORDERED: DEXTROSE 50% SYRINGE 50 ML IV PRN (22:15)
[2021-01-04] MEDS ORDERED: HUMULIN N100 UNITS/ SC ×2 (22:30)
[2021-01-04] MEDS ORDERED: INSULIN REGULAR, HUMAN 100 UNIT/1 ML SQ ONE (22:45)
[2021-01-04] MEDS ORDERED: NPH, HUMAN INSULIN ISOPHANE 100 UNIT/1 ML 3ML VIAL SQ SCH (22:45)
[2021-01-05] MEDS: HYDROCODONE/APAP 5MG-325MG TAB PO PRN ×3 (01:34→21:28)
[2021-01-05 01:38] VITALS: BP 121/45
[2021-01-05 04:53] LABS: BASOPHILS # (AUTO) 0.1 (0.0-0.1); BASOPHILS % 0.6 % (0.0-1.0); EOSINOPHILS # (AUTO) 0.1 (0.0-0.4); HEMATOCRIT 39.4 % (38.2-49.6); HEMOGLOBIN 12.8 g/dL (14.0-18.0); LYMPHOCYTES % 17.3 % (18.0-39.1); MEAN CORPUSCULAR HEMOGLOBIN 29.3 pg (28-32); MEAN CORPUSCULAR HGB CONC 32.5 g/dL (31-35); MEAN CORPUSCULAR VOLUME 90.2 fL (81-99); MONOCYTES # (AUTO) 1.1 (0.2-0.8); MONOCYTES % 9.7 % (4.4-11.3); NEUTROPHILS % 69.7 % (38.7-80.0); PLATELET COUNT 319 x10e3/uL (140-360); RED BLOOD COUNT 4.37 x10e6/uL (4.3-5.7); RED CELL DISTRIBUTION WIDTH 13.4 % (11.7-14.4)
[2021-01-05 05:12] LABS: ANION GAP 16.4 mmol/L (8-16); CALCIUM 9.7 mg/dL (8.4-10.2); CREATININE, SERUM 1.3 mg/dL (0.72-1.25); POTASSIUM 4.4 mmol/L (3.5-5.1)
[2021-01-05] MEDS: SODIUM CHLORIDE 0.9% 1000ML 1,000 ML IV SCH ×2 (05:46→11:13)
[2021-01-05] MEDS: LEVOTHYROXINE SODIUM 50 MCG TAB PO SCH (05:46)
[2021-01-05 06:03] VITALS: BP 123/57
[2021-01-05] MEDS ORDERED: NPH, HUMAN INSULIN ISOPHANE 100 UNIT/1 ML 3ML VIAL SQ SCH (07:30)
[2021-01-05] MEDS ORDERED: GLIPIZIDE 5 MG TAB ER PO SCH (08:00)
[2021-01-05] MEDS: INSULIN REGULAR, HUMAN 100 UNIT/1 ML SQ SCH ×2 (08:30→12:30)
[2021-01-05] MEDS: ASPIRIN 81 MG CHEW TAB PO SCH (08:32)
[2021-01-05] MEDS: CITALOPRAM HYDROBROMIDE 20 MG TAB PO SCH (08:32)
[2021-01-05 08:43] VITALS: BP 137/55
[2021-01-05] MEDS: CEFEPIME 1 GM in SODIUM CHLORIDE 0.9% 50ML 50 ML IV SCH ×2 (08:46→21:28)
[2021-01-05 09:01] VITALS: BP 137/55
[2021-01-05] MEDS: Vancomycin IV 1 GM in SODIUM CHLORIDE 0.9% 250ML 250 ML IV SCH ×2 (10:19→16:51)
[2021-01-05 12:00] VITALS: BP 127/64
[2021-01-05 14:16] LABS: FREE T4 (FREE THYROXINE) 1.01 ng/dL (0.8-1.8); THYROID STIMULATING HORMONE 8.667 uIU/mL (0.350-4.940)
[2021-01-05] MEDS: INSULIN LISPRO 100 UNIT/1 ML 3ML VIAL SQ SCH ×3 (16:30→21:36)
[2021-01-05] MEDS: ENOXAPARIN SOD INJ 40 MG/0.4 ML SYR SC SCH (16:58)
[2021-01-05] MEDS: MORPHINE SULFATE INJ 4 MG/ML INJ 1ML IV PRN (19:15)
[2021-01-05 20:00] VITALS: BP 112/46
[2021-01-05] MEDS: INSULIN GLARGINE 100 UNITS/ML VIAL SQ SCH (21:36)
[2021-01-06] VITALS (8 sets, daily range): BP systolic 109–134; BP diastolic 52–78
[2021-01-06 01:48] LABS: BASOPHILS # (AUTO) 0.1 (0.0-0.1); BASOPHILS % 0.7 % (0.0-1.0); EOSINOPHILS # (AUTO) 0.1 (0.0-0.4); EOSINOPHILS % 1.1 % (0.0-6.0); HEMATOCRIT 39.4 % (38.2-49.6); HEMOGLOBIN 12.7 g/dL (14.0-18.0); LYMPHOCYTES # (AUTO) 2.2 (1.0-3.2); LYMPHOCYTES % 17.6 % (18.0-39.1); MEAN CORPUSCULAR HEMOGLOBIN 29.1 pg (28-32); MEAN CORPUSCULAR HGB CONC 32.2 g/dL (31-35); MEAN CORPUSCULAR VOLUME 90.4 fL (81-99); MONOCYTES % 7.9 % (4.4-11.3); NEUTROPHILS # (AUTO) 8.8 (2.1-6.9); NEUTROPHILS % 71.3 % (38.7-80.0); PLATELET COUNT 324 x10e3/uL (140-360); RED BLOOD COUNT 4.36 x10e6/uL (4.3-5.7); RED CELL DISTRIBUTION WIDTH 13.4 % (11.7-14.4)
[2021-01-06 02:04] LABS: ANION GAP 16.3 mmol/L (8-16); CALCIUM 9.2 mg/dL (8.4-10.2); CREATININE, SERUM 1.05 mg/dL (0.72-1.25); POTASSIUM 4.3 mmol/L (3.5-5.1)
[2021-01-06] MEDS: SODIUM CHLORIDE 0.9% 1000ML 1,000 ML IV SCH (02:13)
[2021-01-06] MEDS: HYDROCODONE/APAP 5MG-325MG TAB PO PRN ×3 (03:45→23:19)
[2021-01-06] MEDS: LEVOTHYROXINE SODIUM 50 MCG TAB PO SCH (05:57)
[2021-01-06 06:22] LABS: CHOL/HDL RATIO 5.1 (3.9-4.7)
[2021-01-06] MEDS: INSULIN GLARGINE 100 UNITS/ML VIAL SQ SCH ×2 (08:00→21:00)
[2021-01-06] MEDS: INSULIN LISPRO 100 UNIT/1 ML 3ML VIAL SQ SCH ×7 (08:00→21:00)
[2021-01-06] MEDS: CEFEPIME 1 GM in SODIUM CHLORIDE 0.9% 50ML 50 ML IV SCH ×2 (09:12→21:07)
[2021-01-06] MEDS: MORPHINE SULFATE INJ 4 MG/ML INJ 1ML IV PRN ×2 (09:12→21:08)
[2021-01-06] MEDS: CITALOPRAM HYDROBROMIDE 20 MG TAB PO SCH (09:13)
[2021-01-06] MEDS: ASPIRIN 81 MG CHEW TAB PO SCH (09:13)
[2021-01-06] MEDS: Vancomycin IV 1 GM in SODIUM CHLORIDE 0.9% 250ML 250 ML IV SCH (10:51)
[2021-01-06] MEDS ORDERED: SODIUM CHLORIDE 0.9% 50ML 50 ML ONE (11:27)
[2021-01-06] MEDS ORDERED: IOPAMIDOL 370 MG/ML 200 ML INFUS..BTL INJ ONE (11:28)
[2021-01-06] MEDS: ENOXAPARIN SOD INJ 40 MG/0.4 ML SYR SC SCH (16:40)
[2021-01-06] MEDS: Vancomycin IV 1.5 GM in SODIUM CHLORIDE 0.9% 250ML 300 ML IV SCH (22:00)
[2021-01-07] VITALS (8 sets, daily range): BP systolic 117–127; BP diastolic 52–61
[2021-01-07] MEDS: LEVOTHYROXINE SODIUM 100 MCG TAB PO SCH (05:49)
[2021-01-07] MEDS: LEVOTHYROXINE SODIUM 75 MCG TAB PO SCH (05:49)
[2021-01-07] MEDS: SODIUM CHLORIDE 0.9% 1000ML 1,000 ML IV SCH ×2 (05:49→16:52)
[2021-01-07] MEDS ORDERED: LEVOTHYROXINE SODIUM 50 MCG TAB PO SCH (06:00)
[2021-01-07] MEDS: HYDROCODONE/APAP 5MG-325MG TAB PO PRN ×3 (08:20→22:00)
[2021-01-07] MEDS: CEFEPIME 1 GM in SODIUM CHLORIDE 0.9% 50ML 50 ML IV SCH ×2 (08:24→21:00)
[2021-01-07] MEDS: ASPIRIN 81 MG CHEW TAB PO SCH (08:24)
[2021-01-07] MEDS: CITALOPRAM HYDROBROMIDE 20 MG TAB PO SCH (08:25)
[2021-01-07] MEDS: INSULIN LISPRO 100 UNIT/1 ML 3ML VIAL SQ SCH ×7 (08:25→21:00)
[2021-01-07] MEDS: INSULIN GLARGINE 100 UNITS/ML VIAL SQ SCH ×2 (08:26→21:00)
[2021-01-07] MEDS: Vancomycin IV 1.5 GM in SODIUM CHLORIDE 0.9% 250ML 300 ML IV SCH ×2 (10:00→21:00)
[2021-01-07] MEDS ORDERED: CITRATE OF MAGNESIA 300ML BOTTLE PO PRN ×2 (10:30)
[2021-01-07] MEDS ORDERED: MAGNESIUM HYDROXIDE 30 ML UDC PO PRN ×2 (10:30)
[2021-01-07] MEDS ORDERED: DOCUSATE SODIUM 100 MG CAP PO ONE (11:00)
[2021-01-07] MEDS ORDERED: MAGNESIUM HYDROXIDE 30 ML UDC PO ONE (11:00)
[2021-01-07] MEDS: MORPHINE SULFATE INJ 4 MG/ML INJ 1ML IV PRN ×2 (13:45→20:40)
[2021-01-07] MEDS: DOCUSATE SODIUM 100 MG CAP PO SCH (16:29)
[2021-01-07] MEDS: ENOXAPARIN SOD INJ 40 MG/0.4 ML SYR SC SCH (16:30)
[2021-01-08] VITALS (8 sets, daily range): BP systolic 104–155; BP diastolic 49–90
[2021-01-08 05:41] LABS: BASOPHILS # (AUTO) 0.1 (0.0-0.1); BASOPHILS % 0.5 % (0.0-1.0); EOSINOPHILS # (AUTO) 0.2 (0.0-0.4); EOSINOPHILS % 1.9 % (0.0-6.0); HEMATOCRIT 37.2 % (38.2-49.6); HEMOGLOBIN 12.1 g/dL (14.0-18.0); LYMPHOCYTES # (AUTO) 1.9 (1.0-3.2); LYMPHOCYTES % 16.4 % (18.0-39.1); MEAN CORPUSCULAR HEMOGLOBIN 29.2 pg (28-32); MEAN CORPUSCULAR HGB CONC 32.5 g/dL (31-35); MEAN CORPUSCULAR VOLUME 89.9 fL (81-99); MONOCYTES # (AUTO) 0.9 (0.2-0.8); MONOCYTES % 7.7 % (4.4-11.3); NEUTROPHILS # (AUTO) 8.2 (2.1-6.9); NEUTROPHILS % 72.6 % (38.7-80.0); PLATELET COUNT 333 x10e3/uL (140-360); RED BLOOD COUNT 4.14 x10e6/uL (4.3-5.7); RED CELL DISTRIBUTION WIDTH 13.3 % (11.7-14.4)
[2021-01-08] MEDS: LEVOTHYROXINE SODIUM 75 MCG TAB PO SCH (06:00)
[2021-01-08] MEDS: LEVOTHYROXINE SODIUM 100 MCG TAB PO SCH (06:00)
[2021-01-08 06:07] LABS: ALBUMIN 2.5 g/dL (3.5-5.0); ALBUMIN/GLOBULIN RATIO 0.5 (0.8-2.0); ANION GAP 16.2 mmol/L (8-16); CALCIUM 9.1 mg/dL (8.4-10.2); CREATININE, SERUM 0.87 mg/dL (0.72-1.25); POTASSIUM 4.2 mmol/L (3.5-5.1)
[2021-01-08] MEDS: CITALOPRAM HYDROBROMIDE 20 MG TAB PO SCH (08:22)
[2021-01-08] MEDS: DOCUSATE SODIUM 100 MG CAP PO SCH ×2 (08:22→16:18)
[2021-01-08] MEDS: CEFEPIME 1 GM in SODIUM CHLORIDE 0.9% 50ML 50 ML IV SCH ×2 (08:22→21:07)
[2021-01-08] MEDS: ASPIRIN 81 MG CHEW TAB PO SCH (08:22)
[2021-01-08] MEDS: INSULIN LISPRO 100 UNIT/1 ML 3ML VIAL SQ SCH ×7 (08:30→21:19)
[2021-01-08] MEDS: INSULIN GLARGINE 100 UNITS/ML VIAL SQ SCH ×2 (08:31→21:19)
[2021-01-08] MEDS: SODIUM CHLORIDE 0.9% 1000ML 1,000 ML IV SCH (08:32)
[2021-01-08] MEDS ORDERED: DOCUSATE SODIUM 100 MG CAP PO SCH (09:00)
[2021-01-08] MEDS: Vancomycin IV 1.5 GM in SODIUM CHLORIDE 0.9% 250ML 300 ML IV SCH ×2 (10:29→22:00)
[2021-01-08] MEDS: HYDROCODONE/APAP 5MG-325MG TAB PO PRN ×2 (10:30→16:42)
[2021-01-08] MEDS: ENOXAPARIN SOD INJ 40 MG/0.4 ML SYR SC SCH (16:18)
[2021-01-08] MEDS: MORPHINE SULFATE INJ 4 MG/ML INJ 1ML IV PRN (21:08)
[2021-01-09] VITALS (9 sets, daily range): BP systolic 123–154; BP diastolic 50–91
[2021-01-09] MEDS: LEVOTHYROXINE SODIUM 75 MCG TAB PO SCH (05:47)
[2021-01-09] MEDS: LEVOTHYROXINE SODIUM 100 MCG TAB PO SCH (05:47)
[2021-01-09] MEDS: SODIUM CHLORIDE 0.9% 1000ML 1,000 ML IV SCH (08:42)
[2021-01-09 08:43] LABS: BASOPHILS # (AUTO) 0.1 (0.0-0.1); BASOPHILS % 0.8 % (0.0-1.0); EOSINOPHILS # (AUTO) 0.3 (0.0-0.4); EOSINOPHILS % 2.9 % (0.0-6.0); HEMATOCRIT 37.9 % (38.2-49.6); HEMOGLOBIN 12.1 g/dL (14.0-18.0); LYMPHOCYTES # (AUTO) 1.8 (1.0-3.2); LYMPHOCYTES % 16.2 % (18.0-39.1); MEAN CORPUSCULAR HEMOGLOBIN 29.1 pg (28-32); MEAN CORPUSCULAR HGB CONC 31.9 g/dL (31-35); MEAN CORPUSCULAR VOLUME 91.1 fL (81-99); MONOCYTES # (AUTO) 0.9 (0.2-0.8); NEUTROPHILS # (AUTO) 7.7 (2.1-6.9); NEUTROPHILS % 71.2 % (38.7-80.0); PLATELET COUNT 336 x10e3/uL (140-360); RED BLOOD COUNT 4.16 x10e6/uL (4.3-5.7); RED CELL DISTRIBUTION WIDTH 13.3 % (11.7-14.4)
[2021-01-09] MEDS: CEFEPIME 1 GM in SODIUM CHLORIDE 0.9% 50ML 50 ML IV SCH (08:43)
[2021-01-09] MEDS: HYDROCODONE/APAP 5MG-325MG TAB PO PRN ×3 (08:48→21:00)
[2021-01-09] MEDS: DOCUSATE SODIUM 100 MG CAP PO SCH ×2 (08:48→17:32)
[2021-01-09] MEDS: ASPIRIN 81 MG CHEW TAB PO SCH (08:48)
[2021-01-09] MEDS: CITALOPRAM HYDROBROMIDE 20 MG TAB PO SCH (08:48)
[2021-01-09] MEDS: INSULIN LISPRO 100 UNIT/1 ML 3ML VIAL SQ SCH ×7 (09:06→21:00)
[2021-01-09] MEDS: INSULIN GLARGINE 100 UNITS/ML VIAL SQ SCH ×2 (09:06→21:00)
[2021-01-09] MEDS: Vancomycin IV 1.5 GM in SODIUM CHLORIDE 0.9% 250ML 300 ML IV SCH (10:03)
[2021-01-09] MEDS: ENOXAPARIN SOD INJ 40 MG/0.4 ML SYR SC SCH (17:39)
[2021-01-09] MEDS: CLINDAMYCIN 600MG / 50ML 50 ML IV SCH (17:39)
[2021-01-10] VITALS (7 sets, daily range): BP systolic 133–149; BP diastolic 47–67
[2021-01-10] MEDS: HYDROCODONE/APAP 5MG-325MG TAB PO PRN ×3 (03:45→22:01)
[2021-01-10] MEDS: LEVOTHYROXINE SODIUM 100 MCG TAB PO SCH (06:01)
[2021-01-10] MEDS: CLINDAMYCIN 600MG / 50ML 50 ML IV SCH ×4 (06:01→17:18)
[2021-01-10] MEDS: LEVOTHYROXINE SODIUM 75 MCG TAB PO SCH (06:01)
[2021-01-10] MEDS: SODIUM CHLORIDE 0.9% 1000ML 1,000 ML IV SCH (07:00)
[2021-01-10] MEDS: INSULIN LISPRO 100 UNIT/1 ML 3ML VIAL SQ SCH ×7 (07:30→21:00)
[2021-01-10] MEDS: INSULIN GLARGINE 100 UNITS/ML VIAL SQ SCH ×2 (07:53→21:00)
[2021-01-10] MEDS: ASPIRIN 81 MG CHEW TAB PO SCH (09:00)
[2021-01-10] MEDS: DOCUSATE SODIUM 100 MG CAP PO SCH ×2 (09:00→17:00)
[2021-01-10] MEDS: CITALOPRAM HYDROBROMIDE 20 MG TAB PO SCH (09:00)
[2021-01-10] MEDS: ENOXAPARIN SOD INJ 40 MG/0.4 ML SYR SC SCH (17:00)
[2021-01-11] VITALS (7 sets, daily range): BP systolic 105–136; BP diastolic 52–74
[2021-01-11] MEDS: SODIUM CHLORIDE 0.9% 1000ML 1,000 ML IV SCH (02:22)
[2021-01-11] MEDS: HYDROCODONE/APAP 5MG-325MG TAB PO PRN ×2 (06:15→12:38)
[2021-01-11] MEDS: CLINDAMYCIN 600MG / 50ML 50 ML IV SCH ×4 (06:37→17:29)
[2021-01-11] MEDS: LEVOTHYROXINE SODIUM 100 MCG TAB PO SCH (06:37)
[2021-01-11] MEDS: LEVOTHYROXINE SODIUM 75 MCG TAB PO SCH (06:37)
[2021-01-11] MEDS: INSULIN LISPRO 100 UNIT/1 ML 3ML VIAL SQ SCH ×7 (07:30→20:49)
[2021-01-11] MEDS: CITALOPRAM HYDROBROMIDE 20 MG TAB PO SCH (08:20)
[2021-01-11] MEDS: ASPIRIN 81 MG CHEW TAB PO SCH (08:20)
[2021-01-11] MEDS: INSULIN GLARGINE 100 UNITS/ML VIAL SQ SCH ×2 (08:20→20:50)
[2021-01-11] MEDS: DOCUSATE SODIUM 100 MG CAP PO SCH ×2 (08:20→17:29)
[2021-01-11] MEDS: MORPHINE SULFATE INJ 4 MG/ML INJ 1ML IV PRN ×2 (14:20→20:45)
[2021-01-11] MEDS ORDERED: SODIUM CHLORIDE 0.9% 50ML 50 ML ONE (14:30)
[2021-01-11] MEDS ORDERED: IOPAMIDOL 370 MG/ML 200 ML INFUS..BTL INJ ONE (14:30)
[2021-01-11] MEDS: ENOXAPARIN SOD INJ 40 MG/0.4 ML SYR SC SCH (17:29)
[2021-01-11] MEDS ORDERED: HYDROCODONE/APAP 5MG-325MG TAB PO PRN (20:30)
[2021-01-12] VITALS (7 sets, daily range): BP systolic 123–143; BP diastolic 47–77
[2021-01-12] MEDS: SODIUM CHLORIDE 0.9% 1000ML 1,000 ML IV SCH (04:00)
[2021-01-12] MEDS: MORPHINE SULFATE INJ 4 MG/ML INJ 1ML IV PRN (04:45)
[2021-01-12 05:19] LABS: BASOPHILS # (AUTO) 0.1 (0.0-0.1); BASOPHILS % 0.9 % (0.0-1.0); EOSINOPHILS # (AUTO) 0.3 (0.0-0.4); EOSINOPHILS % 2.9 % (0.0-6.0); HEMATOCRIT 36.4 % (38.2-49.6); HEMOGLOBIN 11.6 g/dL (14.0-18.0); LYMPHOCYTES # (AUTO) 1.5 (1.0-3.2); LYMPHOCYTES % 17.1 % (18.0-39.1); MEAN CORPUSCULAR HEMOGLOBIN 29.1 pg (28-32); MEAN CORPUSCULAR HGB CONC 31.9 g/dL (31-35); MEAN CORPUSCULAR VOLUME 91.5 fL (81-99); MONOCYTES # (AUTO) 0.8 (0.2-0.8); MONOCYTES % 8.7 % (4.4-11.3); NEUTROPHILS % 69.1 % (38.7-80.0); PLATELET COUNT 388 x10e3/uL (140-360); RED BLOOD COUNT 3.98 x10e6/uL (4.3-5.7); RED CELL DISTRIBUTION WIDTH 13.5 % (11.7-14.4)
[2021-01-12] MEDS: CLINDAMYCIN 600MG / 50ML 50 ML IV SCH ×3 (05:39→12:04)
[2021-01-12] MEDS: LEVOTHYROXINE SODIUM 100 MCG TAB PO SCH (05:39)
[2021-01-12] MEDS: LEVOTHYROXINE SODIUM 75 MCG TAB PO SCH (05:39)
[2021-01-12 06:00] LABS: ANION GAP 11.1 mmol/L (8-16); CALCIUM 9.2 mg/dL (8.4-10.2); CREATININE, SERUM 0.87 mg/dL (0.72-1.25); POTASSIUM 4.1 mmol/L (3.5-5.1)
[2021-01-12] MEDS: INSULIN LISPRO 100 UNIT/1 ML 3ML VIAL SQ SCH ×5 (07:30→15:31)
[2021-01-12] MEDS: CITALOPRAM HYDROBROMIDE 20 MG TAB PO SCH (08:32)
[2021-01-12] MEDS: ASPIRIN 81 MG CHEW TAB PO SCH (08:32)
[2021-01-12] MEDS: DOCUSATE SODIUM 100 MG CAP PO SCH (08:32)
[2021-01-12] MEDS: INSULIN GLARGINE 100 UNITS/ML VIAL SQ SCH (08:33)
[2021-01-12] MEDS ORDERED: ONDANSETRON HCL 4 MG ORAL DISINTEGRATING TAB PO PRN (13:00)
[2021-01-12] MEDS ORDERED: CLINDAMYCIN HC150 MG PO (15:02)
[2021-01-12] MEDS ORDERED: LANTUS 3ML100 UNITS/ SC (15:03)
[2021-01-12] MEDS ORDERED: HUMALOG KW200 UNIT/1 SC (15:04)
== END 2021-01-12 16:05 | disposition home health service (06) | DRG 603 ==
LOC: ER 09:55 → ERHOLD 10:32 → MED/SURG2 12:09 → OBSVTOIN 01-06 10:16
PROVIDERS: ADMIT Internal Medicine; ATTEND Internal Medicine
PROC: 02HV33Z Insertion of Infusion Device into Superior Vena Cava, Percutaneous Approach (ICD-10-PCS; principal; 2021-01-07)
DX: L03.115 Cellulitis of right lower limb (principal); Z68.42 Body mass index [BMI] 45.0-49.9, adult; M87.26 Osteonecrosis due to previous trauma, tibia and fibula; E66.01 Morbid (severe) obesity due to excess calories; E03.9 Hypothyroidism, unspecified; F32.9 Major depressive disorder, single episode, unspecified; Z88.8 Allergy status to other drugs, medicaments and biological substances; Z80.0 Family history of malignant neoplasm of digestive organs; J44.9 Chronic obstructive pulmonary disease, unspecified; Z79.4 Long term (current) use of insulin; E11.22 Type 2 diabetes mellitus with diabetic chronic kidney disease; I12.9 Hypertensive chronic kidney disease with stage 1 through stage 4 chronic kidney disease, or unspecified chronic kidney disease; N18.9 Chronic kidney disease, unspecified; Z20.822 Contact with and (suspected) exposure to COVID-19; L02.12 Furuncle of neck; B95.1 Streptococcus, group B, as the cause of diseases classified elsewhere; L02.415 Cutaneous abscess of right lower limb
CPT/HCPCS: 36415; 36569; 71045; 80048; 80053; 80061; 80202; 82044; 82948; 83036; 83605; 84439; 84443; 85025; 85610; 85730; 87040; 87071; 87205; 93971; 96361; 97139; 99251; 99284; G0378; J0692; J1650; J1815; J2270; J2405; J3370; J7030; J7050; Q9967; U0002